=== PATIENT | male | born 1950 | race Caucasian/White ===

== ENCOUNTER 2017-02-03 17:58 | Emergency (ER) | payer BC ==
[2017-02-03] MEDS ORDERED: FLONASE ALLERG9.9 ML (18:26)
[2017-02-03] MEDS ORDERED: NORVASC10 M2 PO (18:26)
[2017-02-03] MEDS ORDERED: PROSCAR5 M1 PO (18:27)
[2017-02-03] MEDS ORDERED: LIPITOR40 M1 PO (18:27)
[2017-02-03] MEDS ORDERED: NITROSTAT0.4 M1 SL (18:27)
[2017-02-03] MEDS ORDERED: ASPIRIN81 M1 PO (18:28)
[2017-02-03] MEDS ORDERED: B COMPLEX1 EAC1 PO (18:28)
[2017-02-03] MEDS ORDERED: PEPCID20 M1 PO (18:29)
[2017-02-03] MEDS ORDERED: ALL DAY ALLERGY10 M7 PO (18:29)
[2017-02-03] MEDS ORDERED: TRULICITY1.5 MG/0.5 SC (18:30)
[2017-02-03] MEDS ORDERED: TRIAMTERENE-HC1 EAC2 PO (18:30)
[2017-02-03] MEDS ORDERED: GLUCOPHAGE1000 M1 PO (18:30)
[2017-02-03 18:36] LABS: URINE BILIRUBIN NEGATIVE (NEG); URINE BLOOD LARGE (NEG); URINE GLUCOSE (UA) NEGATIVE (NEG); URINE KETONE NEGATIVE (NEG); URINE LEUKOCYTE ESTERASE POSITIVE (NEG); URINE NITRITE NEGATIVE (NEG); URINE PROTEIN LARGE (NEG); URINE SPECIFIC GRAVITY 1.015 (1.003-1.030)
[2017-02-03 18:39] LABS: URINE APPEARANCE CLOUDY; URINE COLOR BROWN
[2017-02-03 18:40] LABS: URINE BACTERIA 3+; URINE RBC 80-90 /[HPF] (0-5); URINE WBC FULL FIELD /[HPF] (0-5)
[2017-02-03] MEDS ORDERED: CIPRO500 M2 PO (20:07)
== END 2017-02-03 20:25 ==
LOC: EDMED 17:58
PROVIDERS: Emergency Medicine
DX: N39.0 Urinary tract infection, site not specified (principal); R31.9 Hematuria, unspecified; I25.10 Atherosclerotic heart disease of native coronary artery without angina pectoris; I10 Essential (primary) hypertension; E11.9 Type 2 diabetes mellitus without complications; Z95.5 Presence of coronary angioplasty implant and graft; Z79.899 Other long term (current) drug therapy